=== PATIENT | female | born 1935 | race Caucasian/White ===

== ENCOUNTER 2016-02-23 14:31 | Emergency (ER) | payer OTHER ==
--- NOTE | 2016-02-23 15:05 | EDPHY ---
H & P Stated Complaint: vaginal d/c x several months, increased & changed color x 36 hrs Time Seen by Provider: 02/23/16 14:42 HPI/ROS: CHIEF COMPLAINT: Vaginal discharge, pain HISTORY OF PRESENT ILLNESS: The patient is a 80 y/o female arriving with her family member complaining of increasing frequency and volume of vaginal discharge following a vaginal biopsy on 01/25/[address] Camacho, almost 1 month ago. 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 She says the fluid was initially clear and she thought it may have been urine. The discharge is not a "mauve" color and may have fecal material in it. She reports she is changing pads frequently and the discharge is "flowing like a leaky faucet." She complains of increasing pain not alleviated by Advil. She had a PET scan last with Dr. Cintron, but does not know the results yet. REVIEW OF SYSTEMS: A 10 point review of systems was performed and is negative with the exception of the elements mentioned in the history of present illness. PHYSICAL EXAM: General Appearance: Alert, well hydrated, appropriate, and non-toxic appearing. Head: Atraumatic without scalp tenderness or obvious injury Eyes: Pupils equal, round, reactive to light and accommodation, EOMI, no trauma , no injection. Ears: Clear bilaterally, no perforation, normal landmarks Nose: Atraumatic, no rhinorrhea, clear. Throat: There is no erythema or exudates, no lesions, normal tonsils, mucus membranes moist. Neck: Supple, 2+ carotid upstroke, non-tender, no lymphadenopathy. Respiratory: No retractions, no distress, no wheezes, and no accessory muscle use. Lungs are clear to auscultation bilaterally. Cardiovascular: Regular rate and rhythm, no murmurs, rubs, or gallops. Bilateral carotid, radial, dorsalis pedis, and posterior tibial pulses intact. Good capillary refill all extremities. Gastrointestinal: Abdomen is soft, non-tender, non-distended, no masses, no rebound, no guarding, no peritoneal signs. : External inspection shows matted fluid, greyish malodorous discharge, full speculum exam not tolerated due to pain Musculoskeletal: Normal active ROM of all extremities, atraumatic. Neurological: Alert, appropriate, and interactive. The patient has normal DTRs and non-focal cranial nerves, motor, sensory, and cerebellar exam. Skin: No rashes, good turgor, no nodules on palpation. PAST MEDICAL HISTORY: Asthma, bladder cancer, hyperlipidemia, breast cancer - no radiation or chemotherapy, bladder cancer with surgical reconstruction. PAST SURGICAL HISTORY: Left nephrectomy, bladder reconstruction with urostomy, cystolitholapaxy, lumpectomy Pathology report 01/28/16: Anterior vaginal wall biopsy performed by Dr. Camacho showed invasive moderately differentiated squamous cell carcinoma SOCIAL HISTORY: Family member at bedside Dr. Doug Cintron DIFFERENTIAL DIAGNOSIS: The differential diagnosis for the patient's vaginal pain included but was not limited to malignant vaginal mass, post-biopsy infection, vaginal fistula, ovarian cyst, pelvic inflammatory disease, ovarian torsion, urinary tract infection, ectopic , cholecystitis, and appendicitis. MEDICAL DECISION MAKING: This is a 80 y/o female with a history of bladder cancer and breast cancer complaining of worsening vaginal discharge and pain following an anterior vaginal biopsy. She has no new system symptoms including fever. Plan for pelvic exam, cultures, and pain management. IV established. 50mcg IV Fentanyl administered prior to pelvic exam for pain. UA ordered. Vaginal swabs procured during pelvic exam and sent for culture. Patient had too much pain to tolerate full pelvic exam with speculum. There was malodorous lopez discharge on exam indicative of some kind of infection. 1gm IV Ceftriaxone and 500mg IV Flagyl administered. 1528: Consulted with Dr. Alva, oncology. CT report does not show rectal mass, only vaginal mass with diffuse vaginal uptake. Wet prep shows 3+ bacteria, which will be sent for culture. Waiting patient to produce urine sample. Patient will be discharged with script for Flagyl, Vicodin and recommendation to follow up with Dr. Camacho on Thursday. Return precautions given. She is comfortable with this plan. Source: Patient - Personal History Current Tetanus/Diphtheria Vaccine: Unsure Current Tetanus Diphtheria and Acellular Pertussis (TDAP): Unsure Tetanus Vaccine Date: <10 YRS - Medical/Surgical History Hx Asthma: Yes Hx Chronic Respiratory Disease: No Hx Diabetes: No Hx Cardiac Disease: No Hx Renal Disease: No Hx Cirrhosis: No Hx Alcoholism: No Hx HIV/AIDS: No Hx Splenectomy or Spleen Trauma: No Other PMH: bladder surgery, kidney surg, hysterectomy, lumpectomy. Patient with multiple urinary tract infections. history of bladder cancer - Social History Smoking Status: Never smoked Constitutional: Initial Vital Signs Temperature (C) 36.5 C 02/23/16 14:37 Heart Rate 103 H 02/23/16 14:37 Respiratory Rate 16 02/23/16 14:37 Blood Pressure 145/92 H 02/23/16 14:37 O2 Sat (%) 94 02/23/16 14:37 O2 Delivery Mode Room Air Allergies/Adverse Reactions: piperacillin Allergy (Severe, Verified 02/23/16 14:35) THROAT SWELLING SEASONAL Allergy (Intermediate, Uncoded 11/13/15 14:01) WATERY EYES, SNEEZY LACTOSE INTOLERANT Allergy (Uncoded 11/13/15 14:01) GI UPSET Home Medications: Medication Instructions Recorded Atorvastatin Calcium [Lipitor 10 5 mg PO DAILY 11/13/15 mg (*)] Thyroid [[place] Thyroid 60 MG (*)] 30 mg PO DAILY10 11/13/15 Hydrocodone/APAP 5/325 [[place] 1 - 2 each PO Q4-6PRN PRN #20 tab 02/23/16 5/325] Methenamine Deepa 02/23/16 metroNIDAZOLE [Flagyl 500 mg (*)] 500 mg PO BID #20 tab 02/23/16 traMADol 02/23/16 Medical Decision Making - Data Points Laboratory Results: 02/23/16 15:10 Trichomonas (Wet Prep) RARE EPITHELIAL CELL Marci species DNA Pending C.trachomatis RNA (TMA) Pending Gardnerella DNA Probe Pending N.gonorrhoeae RNA (TMA) Pending Trichomonas DNA Probe Pending Medications Given: Discontinued Medications Fentanyl (Sublimaze) 50 mcg IVP EDNOW ONE Stop: 02/23/16 16:07 Last Admin: 02/23/16 16:07 Dose: 50 mcg Ceftriaxone Sodium/Dextrose (Rocephin 1 Gm (Premix)) 50 mls @ 100 mls/hr IV EDNOW ONE PRN Reason: Protocol Stop: 02/23/16 16:07 Last Admin: 02/23/16 15:57 Dose: 50 mls Departure - Departure Disposition: Home, Routine, Self-Care Clinical Impression: Vaginal infection, Squamous cell carcinoma of vagina Condition: Fair Instructions: Vaginitis (ED), Metronidazole (By mouth), Hydrocodone/ Acetaminophen (By mouth) Additional Instructions: 1. Take Flagyl as prescribed. Be sure to finish the entire prescription. 2. Use Vicodin as prescribed for pain. Take constipation precautions by using Miralax as directed on the packaging. 3. Follow up with Dr. Camacho on Thursday. 4. Return to the ED for any worsening of condition. 5. Continue your methenamine as directed by Dr. Camacho. Referrals: Christen Cintron MD [Medical Doctor] - As per Instructions Teddy Camacho MD [Medical Doctor] - As per Instructions Prescriptions: metroNIDAZOLE [Flagyl 500 mg (*)] 500 mg PO BID #20 tab Hydrocodone/APAP 5/325 [[place] 5/325] 1 - 2 each PO Q4-6PRN PRN #20 tab PRN Reason: Pain, Moderate Report Scribed for: Gio Ford Report Scribed by: Tracy Gonzalez Date of Report: 02/23/16 Time of Report: 15:23
[2016-02-23] MEDS ORDERED: fentaNYL 100 MCG/2 ML INJ ONE (15:19)
[2016-02-23] MEDS ORDERED: fentaNYL 100 MCG/2 ML INJ IVP ONE (16:06)
[2016-02-23 17:19] VITALS: BP 164/96; PULSE 67; RESP 18; TEMP 98.4; O2SAT 93
[2016-02-25 15:03] LABS: CHLAMYDIA AMPLIFICATION GENPRB NEGATIVE (NEGATIVE)
== END 2016-02-23 17:30 | disposition home or self-care (01) ==
DX: N76.0 Acute vaginitis (principal); J45.909 Unspecified asthma, uncomplicated; C52 Malignant neoplasm of vagina; Z85.3 Personal history of malignant neoplasm of breast; Z85.51 Personal history of malignant neoplasm of bladder
CPT/HCPCS: 96374; 96375; 99284; J0696; J3010

== ENCOUNTER 2016-02-27 07:15 | Inpatient (IN) | payer OTHER ==
[2016-02-27] MEDS ORDERED: levOFLOXACIN 500 MG/DEXTROSE 100 ML IV ONE (08:00)
[2016-02-27 08:12] LABS: % IMMATURE GRANULYOCYTES 0.5 % (0.0-1.1); ABSOLUTE IMMATURE GRANULOCYTES 0.05 10^3/uL (0.00-0.10); ADD DIFF? NO; ADD MORPH? NO; ADD SCAN? NO; ATYPICAL LYMPHOCYTE FLAG 0 (0-99); FRAGMENT RBC FLAG 0 (0-99); HEMATOCRIT 37.6 % (38.0-47.0); HEMOGLOBIN 12.6 g/dL (12.6-16.3); LEFT SHIFT FLG 0 (0-99); LIPEMIA HEMOLYSIS FLAG 80 (0-99); MEAN CELL HEMOGLOBIN 30.1 pg (27.9-34.1); MEAN CELL HEMOGLOBIN CONCENTR. 33.5 g/dL (32.4-36.7); MEAN CELL VOLUME 89.7 fL (81.5-99.8); PLATELET CLUMPS FLAG 10 (0-99); PLATELET COUNT 345 10^3/uL (150-400); RED BLOOD CELL COUNT 4.19 10^6/uL (4.18-5.33); RED CELL DISTRIBUTION WIDTH 13.3 % (11.5-15.2)
[2016-02-27 08:22] LABS: APTT 24.5 SEC (23.0-38.0); INR 0.99 (0.83-1.16)
[2016-02-27 08:23] LABS: CREATININE 1.3 mg/dL (0.6-1.0)
[2016-02-27] MEDS ORDERED: MIDAZOLAM 2 MG/2 ML VIAL ONE ×2 (08:35→08:36)
[2016-02-27] MEDS ORDERED: PROMETHAZINE HCL 25 MG/ML VIAL ONE (08:35)
[2016-02-27] MEDS ORDERED: fentaNYL 100 MCG/2 ML INJ ONE ×2 (08:36→12:53)
[2016-02-27] MEDS ORDERED: NS 1,000 ML IV SCH (08:45)
[2016-02-27] MEDS ORDERED: IOPAMIDOL (ISOVUE-300) 100 ML BTL IV ONE (09:55)
[2016-02-27] MEDS ORDERED: HYDROCODONE/APAP 5/325 TAB ONE (11:25)
[2016-02-27] MEDS ORDERED: HYDROCODONE/APAP 5/325 TAB PO ONE (11:30)
[2016-02-27] MEDS ORDERED: ONDANSETRON 4 MG/2 ML VIAL ONE (12:01)
[2016-02-27] MEDS ORDERED: fentaNYL 100 MCG/2 ML INJ IVP PRN (13:29)
[2016-02-27] MEDS ORDERED: oxyCODONE IR 5 MG TAB PO PRN (13:29)
[2016-02-27] MEDS ORDERED: ONDANSETRON 4 MG/2 ML VIAL IVP PRN (13:39)
[2016-02-27] MEDS ORDERED: ONDANSETRON DISINTEGRATING 4 MG TAB PO PRN (13:39)
[2016-02-27] MEDS ORDERED: PROMETHAZINE HCL 25 MG/ML VIAL IVP PRN (15:29)
--- NOTE | 2016-02-27 15:57 | GHP ---
[f rep st] HISTORY AND PHYSICAL DATE OF ADMISSION: 02/27/2016 CHIEF COMPLAINT: Flank pain, and nausea and vomiting. HPI: This is a 80-year-old female with history of bladder cancer, status post left nephrectomy with bladder reconstruction and urostomy, who underwent right-sided nephrostomy tube placement today since she has been having vaginal leakage of urine over the past few months, which has been worsening, tho ught to be secondary to tumor eroding her urinary tract. Postprocedure today, she had intense 20/10 pain in her right flank and lower abdomen. This was assoc iated with nausea and vomiting. In the PACU, she has been given Zofran and fentanyl with some improv ement of her nausea, but she continues to have severe flank pain. Prior to this procedure today, she denies having any fevers or chills. She has been in her usual sta te of health. PAST MEDICAL HISTORY: 1. Bladder cancer, status post left nephrectomy and bladder reconstruction with urostomy. 2. Dyslipidemia. 3. History of breast cancer, status post lobectomy. 4. Hysterectomy. 5. Cystolitholapaxy. HOME MEDICATIONS: Flagyl, tramadol, [place] Thyroid, [place], Lipitor. ALLERGIES: Reviewed. Zosyn has caused severe throat swelling. SOCIAL HISTORY: The patient lives independently. She denies any current tobacco use. She does have a 25-year pack smoking history. She drinks wine occasionally. FAMILY HISTORY: Reviewed and noncontributory. REVIEW OF SYSTEMS: Comprehensive 10-point review of systems was done and is negative, except for wha t was mentioned in the HPI. PHYSICAL EXAM: VITAL SIGNS: Blood pressure 164/96, pulse 67, respiratory rate 18, O2 sat 93% on afshan m air. GENERAL: No acute distress. HEAD: Normocephalic, atraumatic. EYES: PERRLA. Sclerae anic teric. MOUTH: Moist mucous membranes. NECK: Supple. No lymphadenopathy. CARDIOVASCULAR: S1,S2. No murmurs, rubs, clicks, gallops, or JVD. No lower extremity edema. PULMONARY: Lungs are clear. No wheezes, rales, or rhonchi. ABDOMEN: Soft, nontender, nondistended. No guarding or rebound te nderness. Normoactive bowel sounds. EXTREMITIES: No clubbing or cyanosis. NEURO: Cranial nerves 2-12 grossly intact. No focal motor or sensory deficits. SKIN: Clear. No rashes. DIAGNOSTICS: WBC is 10.12, hemoglobin 12.6, hematocrit 37.6, platelets 345. Coags unremarkable. Cr eatinine was 1.3. Op report from today is not yet available. ASSESSMENT AND PLAN: This is a 80-year-old female with a history of bladder cancer, status post left nephrectomy and bladder reconstruction and urostomy, whom I have been asked to admit to the hospital after undergoing a right nephrostomy due to severe pain, and nausea and vomiting postoperatively. PLAN: 1. The patient will be placed on observation, where we will treat her symptoms supportively with IV antiemetics and opioid pain medications. She will also be started on IV fluids. Will repeat a metab olic panel in the morning. The patient may benefit from consultation with Oncology tomorrow morning if it seems like she is going to be in the hospital for more than 24 hours. Otherwise, she has plans to follow up with Dr. Cintron on an outpatient basis. 2. Elevated blood pressure without history of hypertension, most likely acute stress response. 3. Plan: Monitor blood pressure and treat as indicated. /[id number]/MODL
[2016-02-27] MEDS: HYDROmorphONE/DILAUDID 2 MG/ML SYR IVP PRN (17:25)
--- NOTE | 2016-02-27 18:06 | IR ---
Right Percutaneous Nephrostomy Tube Placement Nephroureteral Stent Placement Indication: Bladder cancer. Status post cystectomy, with a pouch and reimplantation of ureter. 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 The patient is going through multiple pads a day. Urinary diversion was requested. Informed Consent: Obtained from the patient. Risks and benefits were discussed. Crosscutting Measure: Patient's current list of medications including all known prescriptions, over- the-counters, herbals, and vitamin/mineral/dietary supplements are reviewed. Medications' name, dosa ge, frequency, and route of administration are confirmed. Patient is a non-smoker. Prophylactic Antibiotic: Levaquin, 750 mg, was ordered and administered for antimicrobial prophylaxi s. Discontinuation of Prophylactic Antibiotic: Prophylactic antibiotic was given within 4 hours prior t o incision. There was an order to discontinue the antibiotic within 24 hours of procedure end time. VTE Prophylaxis: VTE prophylaxis is not medically necessary for this procedure. Technique: Patient is placed in prone position. A "timeout" procedure was performed to identify the correct patient and the correct procedure. 1% Xylocaine was used for local anesthetic. All element s of maximal sterile barrier technique, including cap, mask, sterile gown, sterile gloves, large ster ile sheet, hand hygiene, and 2% chlorhexidine for cutaneous antisepsis, followed. When ultrasound is used, sterile gel and probe covers are used. Ultrasound evaluation of potential access site was performed. A permanent recording was created for the patient's record. When ultrasound is used, sterile gel and probe covers are used. Accustick 22-gauge needle is inserted under ultrasound guidance into the lower pole dilated collectin g system. Contrast injection confirms placement of the needle in the collecting system. 0.035 wire is advanced coaxially along [place] wire, which was then placed as a safety wire. [place] cath eter is advanced down distally into the pouch. Ureterogram is performed. A total of about 200 mL of contrast were injected, not identifying a leak or a fistula. A 22-cm nephroureteral stent was then advanced, distally pigtailed in the pouch, proximally in the re nal pelvis. After aspiration of that catheter, removing most of the injected contrast, it was then t hat a distal leak was identified. There is also extravasation of contrast surrounding the proximal c ollecting system during the placement of the nephroureteral stent. The leak heads towards the vagina l cuff. If this is truly the fistula, the mouth of the fistula is fairly wide. It would estimate ab out 9 mm in diameter. The drain is attached to a gravity bag. During recovery, the patient experienced significant flank pain that was partially alleviated by oral narcotic pain medication. Medication: 12.5 mg Phenergan, 2.5 mg Versed, 125 mcg fentanyl, 0910 to 0940. Fluoroscopy: 3.2 minutes, 18 images. Impressions 1. Significantly dilated right intrarenal collecting system. 2. Widely patent ureter-pouch anastomosis. 3. Placement of 22-cm nephroureteral stent. 4. Some extravasation of contrast around the collecting system during placement of the stent. 5. Fistula identified that is about 9 mm in diameter, between the distal end of the pouch inferiorly and the right lateral vaginal wall. 6. Significant flank discomfort during recovery. Plan 1. External drainage. 2. Overnight in-house stay under observation status for pain control. The above are discussed in detail with the patient and her daughter, both expressed understanding of the plan.
[2016-02-27] MEDS: SULFAMETHOX/TMP 800/160 MG 1 TAB PO SCH (20:15)
[2016-02-27] MEDS ORDERED: metroNIDAZOLE 500 MG TAB PO SCH (22:00)
[2016-02-27] MEDS: HYDROCODONE/APAP 5/325 TAB PO PRN (22:08)
[2016-02-27] MEDS: D5W 1/2 NS W/ 20 KCl/L 1,000 ML IV SCH (23:01)
[2016-02-28 06:08] LABS: % IMMATURE GRANULYOCYTES 0.3 % (0.0-1.1); ABSOLUTE IMMATURE GRANULOCYTES 0.03 10^3/uL (0.00-0.10); ADD DIFF? NO; ADD MORPH? NO; ADD SCAN? NO; ATYPICAL LYMPHOCYTE FLAG 0 (0-99); FRAGMENT RBC FLAG 0 (0-99); HEMATOCRIT 34.3 % (38.0-47.0); HEMOGLOBIN 11.3 g/dL (12.6-16.3); LEFT SHIFT FLG 0 (0-99); LIPEMIA HEMOLYSIS FLAG 80 (0-99); MEAN CELL HEMOGLOBIN 30.2 pg (27.9-34.1); MEAN CELL HEMOGLOBIN CONCENTR. 32.9 g/dL (32.4-36.7); MEAN CELL VOLUME 91.7 fL (81.5-99.8); PLATELET CLUMPS FLAG 10 (0-99); PLATELET COUNT 281 10^3/uL (150-400); RED BLOOD CELL COUNT 3.74 10^6/uL (4.18-5.33); RED CELL DISTRIBUTION WIDTH 13.5 % (11.5-15.2)
[2016-02-28 06:38] LABS: ANION GAP 8 mEq/L (8-16); CARBON DIOXIDE 20 mEq/l (22-31); CHLORIDE 111 mEq/L (97-110); CREATININE 1.2 mg/dL (0.6-1.0); GLOMERULAR FILTRATION RATE 43; GLUCOSE 113 mg/dL (70-100); POTASSIUM 4.1 mEq/L (3.5-5.2); SODIUM 139 mEq/L (134-144)
[2016-02-28] MEDS: D5W 1/2 NS W/ 20 KCl/L 1,000 ML IV SCH (08:46)
[2016-02-28] MEDS: SULFAMETHOX/TMP 800/160 MG 1 TAB PO SCH (08:59)
[2016-02-28] MEDS ORDERED: IBUPROFEN 200 MG TAB PO PRN (09:48)
[2016-02-28] MEDS ORDERED: traMADol 50 MG TAB PO PRN (09:48)
--- NOTE | 2016-02-28 11:42 | PDDCSUM ---
Discharge Summary Discharge Summary: DISCHARGE SUMMARY FOLLOW-UP ITEMS: Aspirate results pending at time of discharge DATE OF ADMISSION: 02/27/2016 DATE OF DISCHARGE: 02/28/2016 DISCHARGE DIAGNOSES: 1. Acute abdominal pain 2. Vaginal-pouch fistula 3. Bladder cancer 4. Acute kidney injury CONSULTATIONS: Interventional Radiology PROCEDURES / IMAGING: Nephro ureteral stent placement CHIEF COMPLAINT: Acute abdominal pain, elective procedure SUBJECTIVE: Patient has no abdominal pain at time of discharge PHYSICAL EXAM ON DISCHARGE: Heart rate is 80, systolic blood pressure 1/35, satting well on room air, afebrile overnight, patient has some flank tenderness around the tube site without any erythema, induration, fluctuance, bowel sounds are present, good air movement in the right lung base with some inspiratory crackles LABS ON DISCHARGE: Creatinine 1.2, potassium 4.1, white blood cell count 8900, hemoglobin 11.3 HOSPITAL COURSE BY PROBLEM: 1. Acute abdominal pain. The patient was placed under observation following an interventional radiology procedure given ongoing, intractable abdominal pain related to the procedure. The patient's pain was well managed with initial use of IV pain medications and she was transitioned to oral pain medications. The patient is currently responding well to oral pain medications and she will be discharged home with as needed [place] as well as a bowel regimen to prevent constipation. The patient was evaluated by physical and occupational therapy to determine whether she requires any home care assistance. 2. Vaginal-pouch fistula. On patient's nephroureteral stent placement, fluoroscopy it did demonstrate a fistula which is resulting in some urinary leakage. Hopefully the placement of this stent will reduce the amount of urinary leakage, and the patient will follow up with either Dr. Camacho or Dr. Cintron for this issue. 3. Bladder cancer. The patient has follow-up appointment to be scheduled with Dr. Cintron to review her recent PET scan results. 4. Acute kidney injury. Evidence by rising serum creatinine level, potentially secondary to urinary tract obstruction, creatinine level down trending at time of discharge after receiving IV fluids as well as stent/tube placement. DISCHARGE MEDICATIONS: Please see official discharge medication reconciliation sheet in chart , as- needed [place], Senokot S while on pain medications DISCHARGE INSTRUCTIONS: Please follow up with Dr. Schultz in 6 weeks and adhere to the interventional radiology devices recommendations, please schedule follow-up with Dr. Cintron in the short term.
[2016-02-28] MEDS: ATORVASTATIN CALCIUM 10 MG TAB PO SCH (16:21)
[2016-02-28] MEDS: THYROID 60 MG TAB PO SCH (16:24)
[2016-02-28] MEDS: metroNIDAZOLE 500 MG TAB PO SCH ×2 (16:26→21:44)
[2016-02-28] MEDS: METHENAMINE HIPP 1 GM TAB PO SCH ×3 (16:33→21:43)
[2016-02-29] MEDS: HYDROmorphONE/DILAUDID 2 MG/ML SYR IVP PRN ×2 (03:47→04:01)
[2016-02-29] MEDS: HYDROCODONE/APAP 5/325 TAB PO PRN (03:51)
[2016-02-29 05:37] LABS: % IMMATURE GRANULYOCYTES 0.3 % (0.0-1.1); ABSOLUTE IMMATURE GRANULOCYTES 0.03 10^3/uL (0.00-0.10); ADD DIFF? NO; ADD MORPH? NO; ADD SCAN? NO; ATYPICAL LYMPHOCYTE FLAG 0 (0-99); FRAGMENT RBC FLAG 0 (0-99); HEMATOCRIT 35.2 % (38.0-47.0); HEMOGLOBIN 11.3 g/dL (12.6-16.3); LEFT SHIFT FLG 0 (0-99); LIPEMIA HEMOLYSIS FLAG 80 (0-99); MEAN CELL HEMOGLOBIN 29.6 pg (27.9-34.1); MEAN CELL HEMOGLOBIN CONCENTR. 32.1 g/dL (32.4-36.7); MEAN CELL VOLUME 92.1 fL (81.5-99.8); MEAN PLATELET VOLUME 9.8 fL (8.7-11.7); PLATELET CLUMPS FLAG 0 (0-99); PLATELET COUNT 281 10^3/uL (150-400); RED BLOOD CELL COUNT 3.82 10^6/uL (4.18-5.33); RED CELL DISTRIBUTION WIDTH 13.3 % (11.5-15.2)
[2016-02-29 05:55] LABS: ANION GAP 6 mEq/L (8-16); CALCIUM 10.3 mg/dL (8.5-10.4); CARBON DIOXIDE 23 mEq/l (22-31); CHLORIDE 107 mEq/L (97-110); GLOMERULAR FILTRATION RATE 54; GLUCOSE 101 mg/dL (70-100); POTASSIUM 4.3 mEq/L (3.5-5.2); SODIUM 136 mEq/L (134-144)
[2016-02-29 08:21] VITALS: BP 122/75; PULSE 84; RESP 18; TEMP 97.5; O2SAT 90
[2016-02-29] MEDS: METHENAMINE HIPP 1 GM TAB PO SCH (09:04)
[2016-02-29] MEDS: ATORVASTATIN CALCIUM 10 MG TAB PO SCH (09:05)
[2016-02-29] MEDS: metroNIDAZOLE 500 MG TAB PO SCH (09:05)
[2016-02-29] MEDS: THYROID 60 MG TAB PO SCH (09:10)
--- NOTE | 2016-02-29 12:33 | PDIAF ---
- Diagnosis Diagnosis: Pouch-Vaginal Fistula, Nephrostomy tube placement, Intractible pain Code Status: Do Not Resuscitate - Medication Management Discharge Medications: Medications to Continue on Transfer Atorvastatin Calcium [Lipitor 10 mg (*)] 5 mg PO DAILY 11/13/15 [Last Taken 12/02] Thyroid [[place] Thyroid 60 MG (*)] 30 mg PO DAILY10 11/13/15 [Last Taken ] Methenamine Deepa [Hiprex 1 gm (*)] 0.5 gm PO BID 02/23/16 [Last Taken 02/26/16] traMADol [Ultram 50 mg (*)] 50 mg PO Q4-6PRN PRN 02/23/16 [Last Taken Unknown] Ibuprofen [Advil] 400 mg PO Q4-6PRN PRN 02/27/16 [Last Taken 02/26/16] metroNIDAZOLE [Flagyl 500 mg (*)] 250 mg PO BID 02/27/16 [Last Taken 02/26/16] Hydrocodone/APAP 5/325 [[place] 5/325 (*)] 1 - 2 each PO Q4-6PRN PRN #40 tab 02/28 [Last Taken Unknown] Sennosides/Docusate Sodium [Senokot-S] 1 each PO BID PRN #60 tab 02/29/16 [Last Taken Unknown] Resume Writer Antibiotics: NA Discharge Medications: Refer to the Discharge Home Medication list for PRN reason. PICC Care - Routine: N/A - Orders Services needed: Home Care, Registered Nurse Home Care Face to Face: I certify that this patient was under my care and that I had the required [id number] encounter meeting the encounter requirements on the discharge day. My findings support the fact that the patient is homebound as defined in CMS Chapter 7 Medicare Benefits Manual 30.1.1, The condition of the patient is such that there exists a normal inability to leave home and consequently, leaving home would require a considerable and taxing effort. Diet Recommendation: no restrictions on diet [place]: Not applicable (perform regular nephrostomy drain management as recommended) Wound Care Instructions: keep clean and dry - Follow Up Care Current Providers and Referrals: Christen Cintron MD [Medical Doctor] - Teddy Camacho MD [Primary Care Provider] - Elda Hickman MD [Medical Doctor] -
--- NOTE | 2016-02-29 12:38 | PDDCSUM ---
Discharge Summary Discharge Summary: DISCHARGE SUMMARY FOLLOW-UP ITEMS: Aspirate results pending at time of discharge DATE OF ADMISSION: 02/27/2016 DATE OF DISCHARGE: 02/29/2016 DISCHARGE DIAGNOSES: 1. Acute abdominal pain 2. Vaginal-pouch fistula 3. Bladder cancer 4. Acute kidney injury CONSULTATIONS: Interventional Radiology PROCEDURES / IMAGING: Nephroureteral stent placement CHIEF COMPLAINT: Acute abdominal pain, elective procedure SUBJECTIVE: Patient has no abdominal pain at time of discharge PHYSICAL EXAM ON DISCHARGE: Heart rate is 80, systolic blood pressure 1/35, satting well on room air, afebrile overnight, patient has some flank tenderness around the tube site without any erythema, induration, fluctuance, bowel sounds are present, good air movement in the right lung base with some inspiratory crackles LABS ON DISCHARGE: Creatinine 1.0, potassium 4.4, white blood cell count 9000, hemoglobin 11.3 HOSPITAL COURSE BY PROBLEM: 1. Acute abdominal pain. The patient was placed under observation following an interventional radiology procedure given ongoing, intractable abdominal pain related to the procedure. The patient's pain was well managed with initial use of IV pain medications and she was transitioned to oral pain medications. The patient is currently responding well to oral pain medications and she will be discharged home with as needed [place] as well as a bowel regimen to prevent constipation. The patient initially experienced significant pain and deconditioning which rendered her unable to safely ambulate, unable to safely complete ADLs, and she warranted upgrade to inpatient admission status for ongoing care, as it was unsafe to discharge her. After further work w/ physical therapy on 02/28, the patient's pain and deconditioning significantly improved, and she was deemed safe for discharge home by PT. 2. Vaginal-pouch fistula. On patient's nephroureteral stent placement, fluoroscopy it did demonstrate a fistula which is resulting in some urinary leakage. Hopefully the placement of this stent will reduce the amount of urinary leakage, and the patient will follow up with either Dr. Camacho or Dr. Hickman for this issue. The patient and daughter were seen by Dr. Story prior to discharge to discuss the length and comfort of the tube. 3. Bladder cancer. The patient has follow-up appointment to be scheduled with Dr. Cintron to review her recent PET scan results. 4. Acute kidney injury. Evidence by rising serum creatinine level, potentially secondary to urinary tract obstruction, creatinine level down trending at time of discharge after receiving IV fluids as well as stent/tube placement. DISCHARGE MEDICATIONS: Please see official discharge medication reconciliation sheet in chart , as- needed [place] while on pain medications DISCHARGE INSTRUCTIONS: Please follow up with Dr. Hickman in 6 weeks and adhere to the interventional radiology devices recommendations, please schedule follow-up with Dr. Cintron in the short term. Greater than 30 minutes spent on direct patient care, as well as discharge planning and preparation.
[2016-02-29] MEDS ORDERED: POLYETHYLENE GLYCOL 3350 17 GM PKT PO ONE (15:01)
== END 2016-02-29 17:23 | disposition home health service (06) | DRG 940 ==
LOC: FIMAGING 07:15 → F1N 13:38 → OBSVTOIN 02-28 16:50
PROVIDERS: ADMIT Radiology Diagnostic Radiology; ATTEND Internal Medicine
PROC: 0T733DZ Dilation of Right Kidney Pelvis with Intraluminal Device, Percutaneous Approach (ICD-10-PCS; principal; 2016-02-27 10:00)
DX: G89.18 Other acute postprocedural pain (principal); N17.9 Acute kidney failure, unspecified; N82.8 Other female genital tract fistulae; C52 Malignant neoplasm of vagina; E78.5 Hyperlipidemia, unspecified; Z85.51 Personal history of malignant neoplasm of bladder; Z90.5 Acquired absence of kidney; Z85.3 Personal history of malignant neoplasm of breast
CPT/HCPCS: 97116-GP; 97162-GP; 97165-GO; 97530-GP; 97535-GO; C1729; C1758; C1769; G8978-GP-CL; G8979-GP-CI; G8980-GP-CI; G8987-GO-CI; G8988-GO-CI; J1170; J1644; J1956; J2250; J2405; J2550; J3010; Q9967

== ENCOUNTER → 2016-03-07 | Outpatient (CLI) | payer OTHER ==
[~2016-03-07] MED LIST: GADOBUTROL 10 ML VIAL IVP ONE
--- NOTE | 2016-03-07 15:58 | MR ---
MRI of the Pelvis, Without and With Contrast HISTORY: Patient has a history of prior bladder cancer, with cystectomy and urinary diversion. 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 Staging is requested prior to definitive therapy. TECHNIQUE: Prior to contrast administration, axial, sagittal, and coronal MR sequences of the pelvis are obtained. After intravenous administration of 6 mL Gadavist, postcontrast enhanced imaging obtain ed in three planes. FINDINGS: Deep within the central pelvis, there is a solid contrast-enhancing mass centered at the le kimberly of the upper vagina and cervix. This mass measures 5 x 5 x 5 cm in size and demonstrates peripher al spiculation and irregularity. There is no evidence of extension laterally to the obturator internu s muscles bilaterally. The tumor extends posteriorly to abut the ventral serosal surface of the colon at the rectosigmoid junction, without evidence of abnormal enhancement of the colon to suggest kiki guous invasion. Superiorly, the tumor directly extends into the base of the patient's neobladder, thi s finding best visualized on coronal image 14 of series 11, where there is tumor extension on both th e medial and lateral margins of the neobladder. There is contiguous fistula formation and urine passi ng through the central aspect of the tumor to the vagina. There are moderately prominent inguinal lymph nodes bilaterally, nonspecific in features, right great er than left. The largest right inguinal lymph node is identified on image 24 series 10, measuring 1. 6 cm in size. No enlarged pelvic lymph nodes identified. No peritoneal free fluid. An ostomy is prese nt in the right lower quadrant. IMPRESSION: 1. 5-cm mass centered in the low pelvis at the level of the upper vagina and cervix, with evidence of contiguous extension superiorly into the patient's neobladder, with secondary vesicovaginal fistula. While the tumor extends posteriorly to abut the ventral serosal surface of the colon, no features of direct contiguous extension identified. Microscopic serosal involvement is not excluded, however. 2. Mildly prominent bilateral inguinal lymph nodes, right greater than left, nonspecific in features.
== END ==
LOC: FIMAGING 09:24
PROVIDERS: ATTEND Radiology Radiation Oncology
DX: N89.8 Other specified noninflammatory disorders of vagina (principal); N82.0 Vesicovaginal fistula; C52 Malignant neoplasm of vagina; Z85.51 Personal history of malignant neoplasm of bladder
CPT/HCPCS: 72197; A9585

== ENCOUNTER 2016-04-04 12:14 | Day surgery (SDC) | payer OTHER ==
[2016-04-04] MEDS ORDERED: fentaNYL 100 MCG/2 ML INJ ONE (12:43)
[2016-04-04] MEDS ORDERED: MIDAZOLAM 2 MG/2 ML VIAL ONE (12:43)
[2016-04-04] MEDS ORDERED: IOPAMIDOL (ISOVUE-300) 100 ML BTL IV ONE (14:28)
== END 2016-04-04 15:35 | disposition home or self-care (01) ==
LOC: FIMAGING 12:14
PROVIDERS: ATTEND Radiology Diagnostic Radiology
PROC: 0TP Urinary System, Removal (ICD-10-PCS; 2016-04-04)
PROC: 0T9B30Z Drainage of Bladder with Drainage Device, Percutaneous Approach (ICD-10-PCS; principal; 2016-04-04 14:52)
DX: Z43.6 Encounter for attention to other artificial openings of urinary tract (principal); N82.0 Vesicovaginal fistula
CPT/HCPCS: 50387; 75984; 99152; C1729; C1769; J1644; J2250; J3010; Q9967

== ENCOUNTER 2016-04-06 11:15 | Inpatient (IN) | payer OTHER ==
[2016-04-06] MEDS ORDERED: ONDANSETRON 4 MG/2 ML VIAL IVP ONE (11:42)
[2016-04-06] MEDS ORDERED: HYDROmorphONE/DILAUDID 1 MG/ML SYR IVP ONE (11:42)
[2016-04-06] MEDS ORDERED: NS 500 ML IV ONE (11:42)
--- NOTE | 2016-04-06 11:58 | EDPHY ---
H & P Time Seen by Provider: 04/06/16 11:53 HPI/ROS: Chief complaint. Nausea, vaginal pain HPI. Patient is a 80-year-old female with nausea but no vomiting or diarrhea. Temperature this morning 100.6 degrees. She is unable to take her medications. Patient had bilateral nephrostomy tubes changed April 04 this is a routine change. Since then her symptoms have developed. The nephrostomy tubes apparently enter into the vaginal area and she has discomfort area. No pain. She has been taking in cephalexin for the past week for urinary tract infection suppression ROS Constitutional. no fever/chills, no weakness Eyes. no problems with vision ENT. no sore throat, no nasal drainage Cardiovascular. no chest pain Respiratory. no shortness of breath, no coughFever and weakness Abdominal. Nausea and low abdominal pain . no problems urinating MS. no calf pain/swelling, no neck/back pain, no joint pain Skin. no rash Lymph. no swollen glands Neuro. no headache, no dizziness, no difficulty walking or with speech Past Medical/Surgical History: Past medical history is significant for bladder surgery, kidney surgery, hysterectomy, bladder cancer, nephrostomy tubes, dyslipidemia, breast cancer with lobectomy, hypothyroid Social History: Single, nonsmoker, no alcohol Smoking Status: Former smoker Physical Exam: General Appearance: Alert well-developed female vital signs show heart rate 118 afebrile Eyes: Pupils equal and round no pallor or injection. ENT, Mouth: Mucous membranes are moist. Respiratory: There are no retractions, lungs are clear to auscultation. Cardiovascular: Regular rate and rhythm. Gastrointestinal: Abdomen is soft with mild low abdominal tenderness. No masses or organomegaly Neurological: Awake and alert, sensory and motor exams grossly normal. Skin: Warm and dry, no rashes. Musculoskeletal: Neck is supple nontender. Extremities symmetrical, full range of motion. Psychiatric: Patient is oriented X 3, there is no agitation. Constitutional: Initial Vital Signs Temperature (C) 36.9 C 04/06/16 11:18 Heart Rate 118 H 04/06/16 11:18 Respiratory Rate 16 04/06/16 11:18 Blood Pressure 138/86 H 04/06/16 11:18 O2 Sat (%) 94 04/06/16 11:18 O2 Delivery Mode Room Air Allergies/Adverse Reactions: piperacillin Allergy (Severe, Verified 04/06/16 11:22) THROAT SWELLING SEASONAL Allergy (Intermediate, Uncoded 04/06/16 11:22) WATERY EYES, SNEEZY LACTOSE INTOLERANT Allergy (Uncoded 04/06/16 11:22) GI UPSET Home Medications: Medication Instructions Recorded Atorvastatin Calcium [Lipitor 10 5 mg PO HS 11/13/15 mg (*)] Thyroid [Gregory Thyroid 60 MG (*)] 30 mg PO DAILY AT 6AM 11/13/15 Ascorbic Acid [Vitamin C 500 mg 500 mg PO DAILY 04/03/16 (*)] CISplatin [PlatINOL] 0 mg IV WE 04/06/16 Cephalexin [Keflex (*)] 500 mg PO QID 04/06/16 Dexamethasone [Decadron 4 MG (*)] 2 mg PO DAILY 04/06/16 Lidocaine [Lidocaine 4% cream] 1 flavia TP PRN PRN 04/06/16 Methenamine Deepa [Hiprex 1 gm (*)] 0.5 gm PO BIDMEAL 04/06/16 Polyethylene Glycol 3350 [Miralax 17 gm PO DAILY PRN 04/06/16 17 gm (*)] Prochlorperazine Maleate 10 mg PO Q6HRS PRN 04/06/16 [Compazine 10mg (*)] Sennosides/Docusate Sodium 1 each PO DAILY PRN 04/06/16 [Senokot-S (OTC)] Simethicone [Gas-X] 125 mg PO DAILY PRN 04/06/16 oxyCODONE CR [Oxycontin] 10 mg PO BID 04/06/16 oxyCODONE IR [Oxycodone Ir (*)] 5 mg PO Q4HRS PRN 04/06/16 Medical Decision Making Procedures: IV normal saline. She is given Dilaudid and Zofran to help replace some of the medication she has not been able to take this morning. ED Course/Re-evaluation: Do a posada patient more comfortable and stable. The patient has a urinary tract infection despite being on Keflex. This is probably related to her recent instrumentation of and replacement of her nephrostomy tubes. The patient and I did discussed the concern for developing urinary tract infection after urologic surgery and being on cephalexin. It is unclear what the bacteria will be and the specific antibiotic that the bug is sensitive to. We discussed best care is admission and IV antibiotics and further evaluation. She expresses understanding and agreement I consulted and discussed the case with Dr. Oneal, hospitalist, who agrees to the admission Differential Diagnosis: I considered urosepsis. The patient has root recent nephrostomy tube changed instrumentation. The concern is for urosepsis and unusual bacteria. It is even more concerning as she is on antibiotic therapy currently for suppression of urinary tract infection. At this point there is no evidence of sepsis. The patient is also receiving chemotherapy and radiation so her immune system is suppressed - Data Points Laboratory Results: Laboratory Results 04/06/16 12:05 04/06/16 12:05 04/06/16 04/06/16 04/06/16 12:05 12:05 12:05 WBC 4.91 10^3/uL 10^3/uL (3.80-9.50) RBC 3.77 10^6/uL L 10^6/uL (4.18-5.33) Hgb 10.9 g/dL L g/dL (12.6-16.3) Hct 32.4 % L % (38.0-47.0) MCV 85.9 fL fL (81.5-99.8) MCH 28.9 pg pg (27.9-34.1) MCHC 33.6 g/dL g/dL (32.4-36.7) RDW 13.4 % % (11.5-15.2) Plt Count 94 10^3/uL L 10^3/uL (150-400) MPV 9.7 fL fL (8.7-11.7) Neut % (Auto) 88.4 % H % (39.3-74.2) Lymph % (Auto) 4.9 % L % (15.0-45.0) [place] % (Auto) 5.1 % % (4.5-13.0) Eos % (Auto) 0.4 % L % (0.6-7.6) Baso % (Auto) 0.4 % % (0.3-1.7) Nucleat RBC Rel Count 0.0 % % (0.0-0.2) Absolute Neuts (auto) 4.34 10^3/uL 10^3/uL (1.70-6.50) Absolute Lymphs (auto) 0.24 10^3/uL L 10^3/uL (1.00-3.00) Absolute Monos (auto) 0.25 10^3/uL L 10^3/uL (0.30-0.80) Absolute Eos (auto) 0.02 10^3/uL L 10^3/uL (0.03-0.40) Absolute Basos (auto) 0.02 10^3/uL 10^3/uL (0.02-0.10) Absolute Nucleated RBC 0.00 10^3/uL 10^3/uL (0-0.01) Immature Gran % 0.8 % % (0.0-1.1) Immature Gran # 0.04 10^3/uL 10^3/uL (0.00-0.10) Sodium 131 mEq/L L mEq/L (134-144) Potassium 4.0 mEq/L mEq/L (3.5-5.2) Chloride 96 mEq/L L mEq/L (97-110) Carbon Dioxide 24 mEq/l mEq/l (22-31) Anion Gap 11 mEq/L mEq/L (8-16) BUN 17 mg/dL mg/dL (7-23) Creatinine 0.9 mg/dL mg/dL (0.6-1.0) Estimated GFR > 60 Glucose 109 mg/dL H mg/dL (70-100) Calcium 9.1 mg/dL mg/dL (8.5-10.4) Lipase 21.0 IU/L L IU/L (23-300) Urine Color YELLOW Urine Appearance HAZY Urine pH 8.0 H (5.0-7.5) Ur Specific [place] 1.010 (1.002-1.030) Urine Protein 2+ H (NEGATIVE) Urine Ketones NEGATIVE (NEGATIVE) Urine Blood 1+ H (NEGATIVE) Urine Nitrate POSITIVE H (NEGATIVE) Urine Bilirubin NEGATIVE (NEGATIVE) Urine Urobilinogen NEGATIVE EU EU (0.2-1.0) Ur Leukocyte Esterase 3+ H (NEGATIVE) Urine RBC 50-182 /hpf H /hpf (0-3) Urine WBC 50-182 /hpf H /hpf (0-3) Ur Epithelial Cells NONE SEEN /lpf /lpf (NONE-1+) Urine Bacteria 2+ /hpf H /hpf (NONE SEEN) Ur Culture Indicated? INDICATED H (NI) Urine Glucose NEGATIVE (NEGATIVE) Medications Given: Discontinued Medications Hydromorphone HCl (Dilaudid) 0.5 mg IVP EDNOW ONE Stop: 04/06/16 11:43 Last Admin: 04/06/16 12:10 Dose: 0.5 mg Sodium Chloride (Ns) 500 mls @ 0 mls/hr IV EDNOW ONE PRN Reason: Wide Open Stop: 04/06/16 11:43 Last Admin: 04/06/16 12:17 Dose: 500 mls Sodium Chloride (Ns) 1,000 mls @ 0 mls/hr IV ONCE ONE PRN Reason: Wide Open Stop: 04/06/16 12:14 Last Admin: 04/06/16 12:17 Dose: 1,000 mls Levofloxacin/Dextrose (Levaquin 750 Mg (Premix)) 150 mls @ 100 mls/hr IV EDNOW ONE PRN Reason: Protocol Stop: 04/06/16 14:34 Last Admin: 04/06/16 14:00 Dose: 150 mls Ondansetron HCl (Zofran) 4 mg IVP EDNOW ONE Stop: 04/06/16 11:43 Last Admin: 04/06/16 12:17 Dose: 4 mg Departure - Departure Disposition: [facility] Inpatient Acute Clinical Impression: Urinary tract infection Qualifiers: Urinary tract infection type: site unspecified Hematuria presence: with hematuria Qualified Code(s): N39.0 - Urinary tract infection, site not specified ; R31.9 - Hematuria, unspecified Condition: Fair
[2016-04-06] MEDS ORDERED: NS 1,000 ML IV ONE (12:13)
[2016-04-06 12:20] LABS: % IMMATURE GRANULYOCYTES 0.8 % (0.0-1.1); ABSOLUTE IMMATURE GRANULOCYTES 0.04 10^3/uL (0.00-0.10); ADD DIFF? NO; ADD MORPH? NO; ADD SCAN? NO; ATYPICAL LYMPHOCYTE FLAG 0 (0-99); FRAGMENT RBC FLAG 0 (0-99); HEMATOCRIT 32.4 % (38.0-47.0); HEMOGLOBIN 10.9 g/dL (12.6-16.3); LEFT SHIFT FLG 0 (0-99); LIPEMIA HEMOLYSIS FLAG 80 (0-99); MEAN CELL HEMOGLOBIN 28.9 pg (27.9-34.1); MEAN CELL HEMOGLOBIN CONCENTR. 33.6 g/dL (32.4-36.7); MEAN CELL VOLUME 85.9 fL (81.5-99.8); MEAN PLATELET VOLUME 9.7 fL (8.7-11.7); PLATELET CLUMPS FLAG 0 (0-99); PLATELET COUNT 94 10^3/uL (150-400); RED BLOOD CELL COUNT 3.77 10^6/uL (4.18-5.33); RED CELL DISTRIBUTION WIDTH 13.4 % (11.5-15.2)
[2016-04-06 12:22] LABS: COLOR YELLOW; LEUKOCYTE ESTERASE,URINE 3+ (NEGATIVE); NITRITE,URINE POSITIVE (NEGATIVE)
[2016-04-06 12:32] LABS: BACTERIA 2+ /hpf (NONE SEEN); RBC,URINE 50-182 /hpf (0-3); WBC,URINE 50-182 /hpf (0-3)
[2016-04-06 12:39] LABS: ANION GAP 11 mEq/L (8-16); CALCIUM 9.1 mg/dL (8.5-10.4); CARBON DIOXIDE 24 mEq/l (22-31); CHLORIDE 96 mEq/L (97-110); CREATININE 0.9 mg/dL (0.6-1.0); GLOMERULAR FILTRATION RATE > 60; GLUCOSE 109 mg/dL (70-100); SODIUM 131 mEq/L (134-144)
[2016-04-06] MEDS ORDERED: PROMETHAZINE HCL 25 MG/ML INJ IVP PRN (14:12)
[2016-04-06] MEDS ORDERED: ACETAMINOPHEN 325 MG TAB PO PRN (14:12)
[2016-04-06] MEDS ORDERED: ONDANSETRON DISINTEGRATING 4 MG TAB PO PRN (14:12)
--- NOTE | 2016-04-06 15:23 | GHP ---
[f rep st] HISTORY AND PHYSICAL DATE OF ADMISSION: 04/06/2016 CHIEF COMPLAINT: Pyelonephritis. 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 States she awoke this morning feeling very weak. Temperature at home was 100.6. She had crampy lower abdominal pain and subsequent nausea. No emesis or diarrhea. The patient has also had bladder cancer, status post left nephrectomy and bladder reconstruction was urostomy. She had issues with vaginal leakage, has had a right-sided nephrostomy tube placed on February 27, 2016. The patient also reports chills, denies fevers or sweats. She had her nephrostomy tube changed out 04/04/2016. Her last radiation was on Thursday. I personally reviewed micro history and has had Klebsiella and E coli pansensitive. Diagnosed with a UTI on 03/30/2016 and was started on Keflex with 2 days left of antibiotics. REVIEW OF SYSTEMS: I completed a 10-point review of systems negative except as in HPI. PAST MEDICAL HISTORY: 1. 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 2. Bladder cancer resected in 1987 with Bobo pouch. 3. Early stage breast cancer, 2005, resected, refused adjuvant radiation or hormonal therapy. 4. Vaginal pouch fistula. PAST SURGICAL HISTORY: 1. Bladder reconstruction and urostomy. 2. Bladder cancer resection in 1987 with pouch. 3. Left nephrectomy in 1988. 4. Left breast lumpectomy 2005. 5. Hernia surgery. FAMILY HISTORY: Father with CVA, mother healthy. SOCIAL HISTORY: Lives alone in [place]. Daughter is close by. Her brother and [id number] are caring for patient this week, contact is Chelsea Rausch . Quit tobacco in 1987, social alcohol. ALLERGIES: 1. Piperacillin, severe anaphylaxis. 2. Seasonal allergies. 3. Lactose intolerant. MEDICATIONS: 1. Vitamin C. 2. [place] thyroid 30 mg daily. 3. Senna. 4. Promethazine p.r.n. 5. OxyContin 10 twice daily. 6. Oxycodone 5 p.o. p.r.n. 7. MiraLAX. 8. Keflex. 9. Lidocaine cream. 10. Gas-X. 11. Dexamethasone 2 mg daily. 12. Lipitor 5 mg. CLINICAL EXAM: VITAL SIGNS: Temperature 37.4, blood pressure 154/86, heart rate 74 to 118, respirations 16, 97% on 2 L. GENERAL: Patient is tired- appearing, no acute distress. HEENT: PERRLA, EOMI, oropharynx clear, dry mucous membranes. CV: Regular rate and rhythm. No murmurs, gallops, or rubs. LUNGS: Clear to auscultation bilaterally. ABDOMEN: Soft. Mild, nontender, positive bowel sounds. : Urostomy without tenderness. She does have left suprapubic tenderness and right CVA tenderness. Right-sided nephrostomy tube in place. Dressed, clean, dry, and intact. MUSCULOSKELETAL: 5/5 upper and lower extremity strength. NEURO: 2 through 12 intact. PSYCH: Alert and oriented x3 next. LABS: WBC is 4.9, hemoglobin 10, hematocrit 32, platelets 94. Lactate 0.9, sodium 131, potassium 4.9, chloride 96, carbon dioxide 24, anion gap 12, BUN 17 creatinine 0.9, glucose 109, lipase is 21. Urine positive nitrite, +3 leuko esterase, 5182 RBCs, 50 to 182 WBCs, +2 bacteria. ASSESSMENT AND PLAN: 1. Pyelonephritis: Patient with recent klebsiella urinary tract infection diagnosed 03/30. She has almost completed a full course of Keflex. The patient now with fever, suprapubic pain and positive UA. Will treat with IV Levaquin (anaphylaxis to PCNs). Await urine and blood cultures. Her nephrostomy tube was changed out on the . 2. Stage IV vaginal cancer: primary Oncologist is Dr. Cintron, Urologist is Dr. Camacho who spoke with family today. Currently undergoing weekly XRT with cisplatin. 3. Hypovolemic hyponatremia: due to decreased p.o. intake. Will give gentle fluids. 4. Acute abdominal pain: suspected to be likely due to underlying infection. Nausea also do infection will provide p.r.n. antiemetics. 5. Normocytic anemia. Suspect this is secondary to chemotherapy. 6. Thrombocytopenia again suspect secondary to chemotherapy. 7. Pelvic pain secondary to XRT as well as urine due to a vaginal pouch fistula. Will continue her lidocaine cream. 8. Diet: Regular. 9. DVT prophylaxis: Lovenox. DISPOSITION: Patient warrants inpatient admission given acute pyelonephritis warranting IV antibiotics and IV fluids. Awaiting cultures. /[id number]/MODL MTDD
[2016-04-06] MEDS: NS 1,000 ML IV SCH (15:28)
[2016-04-06] MEDS: ONDANSETRON 4 MG/2 ML VIAL IVP PRN ×2 (15:54→20:24)
[2016-04-06] MEDS ORDERED: NON-FORMULARY NEW DRUG (Simethicone [Gas-X] 125 MG) PO PRN (16:21)
[2016-04-06] MEDS ORDERED: oxyCODONE IR 5 MG TAB PO PRN (16:21)
[2016-04-06] MEDS ORDERED: SENNOSIDES/DOCUSATE SODIUM TAB PO PRN (16:21)
[2016-04-06] MEDS ORDERED: PROCHLORPERAZINE MALEATE 10 MG TAB PO PRN (16:21)
[2016-04-06] MEDS ORDERED: LIDOCAINE TP PRN (16:21)
[2016-04-06] MEDS ORDERED: POLYETHYLENE GLYCOL 3350 17 GM PKT PO PRN (16:21)
[2016-04-06] MEDS ORDERED: SIMETHICONE 80 MG TAB CHEW PO PRN (16:45)
[2016-04-06] MEDS: ATORVASTATIN CALCIUM 10 MG TAB PO SCH (20:24)
[2016-04-07] MEDS: NS 1,000 ML IV SCH ×2 (01:19→19:32)
[2016-04-07] MEDS: THYROID 60 MG TAB PO SCH (05:19)
[2016-04-07 05:27] LABS: % IMMATURE GRANULYOCYTES 1.1 % (0.0-1.1); ABSOLUTE IMMATURE GRANULOCYTES 0.04 10^3/uL (0.00-0.10); ADD DIFF? NO; ADD MORPH? NO; ADD SCAN? NO; ATYPICAL LYMPHOCYTE FLAG 0 (0-99); FRAGMENT RBC FLAG 0 (0-99); HEMATOCRIT 26.7 % (38.0-47.0); HEMOGLOBIN 8.8 g/dL (12.6-16.3); LEFT SHIFT FLG 10 (0-99); LIPEMIA HEMOLYSIS FLAG 80 (0-99); MEAN CELL HEMOGLOBIN 29.4 pg (27.9-34.1); MEAN CELL VOLUME 89.3 fL (81.5-99.8); MEAN PLATELET VOLUME 9.3 fL (8.7-11.7); PLATELET CLUMPS FLAG 0 (0-99); PLATELET COUNT 50 10^3/uL (150-400); RED BLOOD CELL COUNT 2.99 10^6/uL (4.18-5.33); RED CELL DISTRIBUTION WIDTH 13.4 % (11.5-15.2)
[2016-04-07 05:56] LABS: ANION GAP 7 mEq/L (8-16); CALCIUM 8.2 mg/dL (8.5-10.4); CARBON DIOXIDE 23 mEq/l (22-31); CHLORIDE 100 mEq/L (97-110); CREATININE 0.9 mg/dL (0.6-1.0); GLOMERULAR FILTRATION RATE > 60; GLUCOSE 93 mg/dL (70-100); POTASSIUM 3.8 mEq/L (3.5-5.2); SODIUM 130 mEq/L (134-144)
--- NOTE | 2016-04-07 08:42 | HOSPPROG ---
Hospitalist Progress Note Assessment/Plan: Ms Nina presented to the emergency room with weakness, fever and abdominal pain. She woke feeling very weak. Her temperature at home was 100.6. She has a right-sided nephrostomy tube placed on 02/27/2016 today is my 1st encounter with the patient. Chart reviewed. #. Acute pyelonephritis * recently treated for UTI with a full course of Keflex * patient is immunocompromised. * She is being treated with IV Levaquin * nephrostomy tubes were changed on 04/04 #. stage IV vaginal cancer * patient getting weekly Cisplatin and XRT * will contact Dr. Cintron and let him know of the patient's admission (message left) * Dr. Camacho who is the patient's urologist spoke with the family yesterday #. hyponatremia * will check urine studies * she eats and drinks very little * cont iv fluids for one more liter #. anemia * lower than her baseline #. Thrombocytopenia * lower than her baseline * most likely secondary from chemo #. bladder cancer * history of a nephroureteral stent placement in February * patient has vaginal cancer that is eroding the pelvis creating a large urine to the vaginal fistula #. Poor intake * asked dietary to see patient * ensure ordered #.Pelvic pain * none today Subjective: Kati is feeling better today after getting IV abx and fluids. Objective: Vital Signs Temp Pulse Resp BP Pulse Ox 37 C 85 16 135/78 H 98 04/07/16 03:33 04/07/16 03:33 04/07/16 03:33 04/07/16 03:33 04/07/16 03:33 Laboratory Results 04/07/16 04:44 04/07/16 04:44 04/06/16 04/07/16 04/08/16 05:59 05:59 05:59 Intake Total 1700 Output Total 5 Balance -375 - Physical Exam Constitutional: no apparent distress, chronically ill appearing Eyes: PERRL Ears, Nose, Mouth, Throat: hearing normal Cardiovascular: regular rate and rhythym Respiratory: no respiratory distress Gastrointestinal: normoactive bowel sounds Genitourinary: no bladder tenderness, other (nephrostomy tube on right side draining yellow urine) Skin: warm, No normal color (pale) Musculoskeletal: generalized weakness Neurologic: AAOx3 Psychiatric: interacting appropriately ICD10 Worksheet Patient Problems: Problems Problem Status Onset Urinary tract infection Acute Pyelonephritis Acute
[2016-04-07] MEDS: DEXAMETHASONE 4 MG TAB PO SCH (09:42)
[2016-04-07] MEDS: ASCORBIC ACID 500 MG TAB PO SCH ×2 (09:43→10:15)
[2016-04-07] MEDS: ONDANSETRON 4 MG/2 ML VIAL IVP PRN ×2 (10:05→20:02)
--- NOTE | 2016-04-07 16:11 | GCON ---
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 RECOMMENDATIONS: 1. Agree with treating the patient's urinary tract infection with intravenous antibiotics as you ar e doing. 2. I would continue her radiation therapy starting tomorrow and also continue her cisplatin, which is being given weekly during radiation therapy on Thursday. 3. Location of treatment; whether she will need to be treated with cisplatin as an inpatient or as an outpatient will depend on how she does overall. 4. The patient does have anemia, not unexpected for pelvic radiation plus cisplatin. We will kiki rodoale to monitor her CBC while she is in the hospital and then continue to monitor her as an outpatien t also. ASSESSMENT: The patient is a 80-year-old white female who has had multiple cancers in the past, inc luding a remote history of a left renal carcinoma, unknown stage, history of breast cancer stage I d iagnosed in October of 2005. This was an invasive ductal carcinoma grade 2, HER-2 negative, ER, P R positive, and was located in the left breast lower central quadrant. She also had a history of bl adder cancer diagnosed in 1997. Her stage was unknown and most recently, she was diagnosed with a v aginal cancer in January of 2016. The staging was T4 N1 M1, with metastatic lesion to bone and rig ht lung. She is currently getting combined modality radiation plus weekly cisplatin as a primary tr eatment for this. She is now approximately 4 weeks into therapy. She presented with nausea and vomiting in addition to not feeling very well over the weekend. She p resented to the emergency room and was found to have urinary tract infection. The patient does have a nephrostomy tube in. She had been given oral antibiotics last week, but failed therapy. She was , therefore, admitted to the hospital for intravenous therapy and further treatment evaluation. The re is not current evidence of sepsis. Her blood pressure is okay. Her lactate was normal. Her blo od cultures are negative so far. The ID and sensitivity of her organism is pending, although it is a gram-negative [place], non lactose pss delivery professional. Because the patient is clinically stable, unless her situation deteriorates, I would resume her radi ation tomorrow and her chemotherapy is planned on Thursday of this week. I would also monitor her CBC closely. She did drop approximately 1 g overnight, but this is likely related to hydration and bedrest. She does not have any gross active bleeding at this time. I do n ot think she needs a transfusion, at least at this point. HISTORY OF PRESENT ILLNESS: Please see assessment. PAST MEDICAL HISTORY: In addition to her multiple previous cancers, includes hypothyroidism, hyperc holesterolemia, hernia repair, osteopenia, and history of asthma. PAST SURGICAL HISTORY: Cystectomy and hysterectomy in 1987 with a Kock pouch formation. She had a left nephrectomy in 1988. She had a left breast lumpectomy with sentinel node biopsy and had a harini ia repair around 2009. SOCIAL HISTORY: The patient is . She has been employed as an educator in the past, but is now retired. Her alcohol consumption prior to becoming ill was approximately 14 drinks per week. S he has local family members available for support. Her brother and [id number]-usr are in the room wi th her today. FAMILY HISTORY: Unremarkable for malignancy in first-degree relatives of which she is aware. REVIEW OF SYSTEMS: Remarkable for fatigue, nausea, which is now improving. Her 10-system review is otherwise unremarkable. PHYSICAL EXAMINATION: GENERAL: An alert, pale woman in no acute distress. HEENT: Pallor. LUNGS: Clear to auscultation anteriorly and posteriorly. CARDIAC: Regular rhythm. ABDOMEN: Normal bow el sounds and soft abdomen. LABORATORY DATA: Her urine culture, as previously mentioned, reveals a gram-negative [place], which is a non lactose pss delivery professional. Her blood cultures are pending. Her CBC shows a white count of 3.68, with a hemoglobin of 8.8, and a platelet count of 50,000. Her creatinine is normal at 0.9. Her sodium is 130. Her venous lactic acid was normal at 0.9. Thank you very much for allowing us to participate in her care. We look forward to assisting with h er management, both as an inpatient and as an outpatient. /[id number]/MODL
[2016-04-07] MEDS: ATORVASTATIN CALCIUM 10 MG TAB PO SCH (20:02)
[2016-04-07 23:19] VITALS: O2SAT 99
[2016-04-08] MEDS: THYROID 60 MG TAB PO SCH (04:44)
[2016-04-08 05:32] LABS: % IMMATURE GRANULYOCYTES 0.7 % (0.0-1.1); ABSOLUTE IMMATURE GRANULOCYTES 0.02 10^3/uL (0.00-0.10); ADD DIFF? NO; ADD MORPH? NO; ADD SCAN? NO; ATYPICAL LYMPHOCYTE FLAG 0 (0-99); FRAGMENT RBC FLAG 0 (0-99); HEMATOCRIT 28.1 % (38.0-47.0); HEMOGLOBIN 9.2 g/dL (12.6-16.3); LEFT SHIFT FLG 0 (0-99); LIPEMIA HEMOLYSIS FLAG 80 (0-99); MEAN CELL HEMOGLOBIN 29.3 pg (27.9-34.1); MEAN CELL HEMOGLOBIN CONCENTR. 32.7 g/dL (32.4-36.7); MEAN CELL VOLUME 89.5 fL (81.5-99.8); MEAN PLATELET VOLUME 10.6 fL (8.7-11.7); PLATELET CLUMPS FLAG 30 (0-99); RED BLOOD CELL COUNT 3.14 10^6/uL (4.18-5.33); RED CELL DISTRIBUTION WIDTH 13.1 % (11.5-15.2)
[2016-04-08 05:35] LABS: PLATELET COUNT 46 10^3/uL (150-400)
[2016-04-08 05:57] LABS: ALANINE AMINOTRANSFERASE 35 IU/L (9-52); ALBUMIN 2.7 g/dL (3.5-5.0); ALKALINE PHOSPHATASE 58 IU/L (38-126); ANION GAP 9 mEq/L (8-16); ASPARTATE AMINOTRANSFERASE 20 IU/L (14-46); BILIRUBIN,TOTAL 0.4 mg/dL (0.1-1.4); CALCIUM 8.9 mg/dL (8.5-10.4); CARBON DIOXIDE 21 mEq/l (22-31); CHLORIDE 102 mEq/L (97-110); CREATININE 0.8 mg/dL (0.6-1.0); GLOMERULAR FILTRATION RATE > 60; GLUCOSE 83 mg/dL (70-100); SODIUM 132 mEq/L (134-144); TOTAL PROTEIN 5.2 g/dL (6.3-8.2)
[2016-04-08 06:17] LABS: PLATELET ESTIMATE DECREASED (ADEQ)
[2016-04-08 08:09] VITALS: BP 154/80; PULSE 72; RESP 16; TEMP 98
--- NOTE | 2016-04-08 08:31 | HOSPPROG ---
Hospitalist Progress Note Assessment/Plan: Ms Nina presented to the emergency room with weakness, fever and abdominal pain. She woke feeling very weak. Her temperature at home was 100.6. She has a right-sided nephrostomy tube placed on 02/27/2016. #. Acute pyelonephritis/ suspect this is a UTI that didn't get good abx coverage * Pyelo likely unrelated to nephrostomy tube change * recently treated for UTI with a full course of Keflex * patient is immunocompromised. * She is being treated with IV Levaquin/urine cx is showing pseudomonas/ * nephrostomy tubes were changed on 04/04 * blood cx show no growth #. stage IV vaginal cancer * patient getting weekly Cisplatin and XRT * Dr. Camacho who is the patient's urologist spoke with the family yesterday #. hyponatremia * na better today with eating #. anemia * lower than her baseline #. Thrombocytopenia * lower than her baseline * most likely secondary from chemo #. bladder cancer * history of a nephroureteral stent placement in February * patient has vaginal cancer that is eroding the pelvis creating a large urine to the vaginal fistula #. Poor intake * eating better today #.Pelvic pain * none today #.Plan: dc today for radiation/ patient eating and drinking well. Subjective: Kati is feeling much better today/ no complaitns. Objective: Vital Signs Temp Pulse Resp BP Pulse Ox 36.6 C 72 16 154/80 H 99 04/08/16 08:00 04/08/16 08:00 04/08/16 08:00 04/08/16 08:00 04/08/16 08:00 Laboratory Results 04/08/16 04:56 04/08/16 04:56 04/07/16 04/08/16 04/09/16 05:59 05:59 05:59 Intake Total 1700 Output Total 3313 2334 Balance -375 -6528 - Physical Exam Constitutional: no apparent distress Eyes: PERRL Ears, Nose, Mouth, Throat: hearing normal Cardiovascular: regular rate and rhythym Respiratory: no respiratory distress Gastrointestinal: normoactive bowel sounds Genitourinary: other (nephrostomy tube w yellow urine) Skin: warm, No normal color (pale) Musculoskeletal: no muscle tenderness Neurologic: AAOx3 Psychiatric: interacting appropriately, not anxious ICD10 Worksheet Patient Problems: Problems Problem Status Onset Urinary tract infection Acute Pyelonephritis Acute
[2016-04-08] MEDS: ONDANSETRON 4 MG/2 ML VIAL IVP PRN (09:47)
[2016-04-08] MEDS: DEXAMETHASONE 4 MG TAB PO SCH (09:48)
[2016-04-08] MEDS: ASCORBIC ACID 500 MG TAB PO SCH (09:48)
--- NOTE | 2016-04-08 10:28 | SOAPPROG ---
SOAP Progress Note Assessment/Plan: Assessment: Pseudomonas UTI - sensitive to Levaquin. 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 She will need to f/u in the office for chemo as planned tomorrow Subjective: Feels much better. Taking nutrition by mouth. Objective: Vital Signs Temp Pulse Resp BP Pulse Ox 36.6 C 72 16 154/80 H 99 04/08/16 08:00 04/08/16 08:00 04/08/16 08:00 04/08/16 08:00 04/08/16 08:00 Laboratory Results 04/08/16 04:56 04/08/16 04:56 04/06/16 04/07/16 04/08/16 23:59 23:59 23:59 Intake Total 1600 100 Output Total 800 3865 007 Balance 823 -0599 -145 Physical Exam - Physical Exam General Appearance: alert, no apparent distress Respiratory: normal breath sounds Cardiac/Chest: regular rate, rhythm Abdomen: normal bowel sounds ICD10 Worksheet Patient Problems: Problems Problem Status Onset Urinary tract infection Acute Pyelonephritis Acute
--- NOTE | 2016-04-08 10:47 | PDIAF ---
- Diagnosis Diagnosis: pyelonephritis, cancer Code Status: Full Code - Medication Management Discharge Medications: Medications to Continue on Transfer Atorvastatin Calcium [Lipitor 10 mg (*)] 5 mg PO HS 11/13/15 [Last Taken ] Thyroid [[place] Thyroid 60 MG (*)] 30 mg PO DAILY AT 6AM 11/13/15 [Last Taken ] Ascorbic Acid [Vitamin C 500 mg (*)] 500 mg PO DAILY 04/03/16 [Last Taken ] CISplatin [PlatINOL] 0 mg IV WE 04/06/16 [Last Taken 04/02/16] Dexamethasone [Decadron 4 MG (*)] 2 mg PO DAILY 04/06/16 [Last Taken 04/05/16] Lidocaine [Lidocaine 4% cream] 1 flavia TP PRN PRN 04/06/16 [Last Taken 04/06/16] Methenamine Deepa [Hiprex 1 gm (*)] 0.5 gm PO BIDMEAL 04/06/16 [Last Taken ] Polyethylene Glycol 3350 [Miralax 17 gm (*)] 17 gm PO DAILY PRN 04/06/16 [Last Taken Unknown] Prochlorperazine Maleate [Compazine 10mg (*)] 10 mg PO Q6HRS PRN 04/06/16 [Last Taken 04/05/16] Sennosides/Docusate Sodium [Senokot-S] 1 each PO DAILY PRN 04/06/16 [Last Taken Unknown] Simethicone [GAS-X] 125 mg PO DAILY PRN 04/06/16 [Last Taken 04/04/16] oxyCODONE CR [Oxycontin] 10 mg PO BID 04/06/16 [Last Taken 04/05/16] oxyCODONE IR [Oxycodone Ir (*)] 5 mg PO Q4HRS PRN 04/06/16 [Last Taken 04/03/16] Acetaminophen [Tylenol 325mg (*)] 650 mg PO Q4HRS PRN #0 tab 04/08/16 [Last Taken Unknown] levOFLOXACIN [levAQUIN (*)] 750 mg PO DAILY #8 tab 04/08/16 [Last Taken Unknown] Discharge Medications: Refer to the Discharge Home Medication list for PRN reason. - Orders Services needed: Home Care, Physical Therapy, Occupational Therapy Home Care Face to Face: I certify that this patient was under my care and that I had the required [id number] encounter meeting the encounter requirements on the discharge day. My findings support the fact that the patient is homebound as defined in CMS Chapter 7 Medicare Benefits Manual 30.1.1, The condition of the patient is such that there exists a normal inability to leave home and consequently, leaving home would require a considerable and taxing effort. Diet Recommendation: no restrictions on diet Diet Texture: Regular Texture Diet - Follow Up Care Current Providers and Referrals: Teddy Camacho MD [Primary Care Provider] - As per Instructions Christen Cintron MD [Medical Doctor] -
--- NOTE | 2016-04-08 11:38 | GDS ---
[f rep st] DISCHARGE SUMMARY DISCHARGE DIAGNOSES: 1. Pyelonephritis. 2. Stage IV vaginal cancer. 3. Hyponatremia. 4. Anemia. 5. Thrombocytopenia. 6. Bladder cancer. 7. Poor oral intake. 8. Pelvic pain. CONSULTATIONS DURING STAY: Dr. Mike Chavarria with Hematology. 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 She presented with weakness, fever, abdominal pain. In the morning she started feeling very weak. At home her temperature was 100.6. She also has had bladder cancer status post left nephrectomy and bladder reconstruction with urostomy. She has had issues with vaginal leakage and had a right-sided nephrostomy tube placed on February 27, 2016. She was also recently treated for a urinary tract infection with a full course of Keflex. Urinalysis was performed here. This grew out Pseudomonas aeruginosa. She was treated with Levaquin. She is markedly improved today. HOSPITAL COURSE PER PROBLEM: 1. Acute pyelonephritis. Her symptoms have almost completely resolved with treatment of Levaquin. Her pyelonephritis was likely not related to the nephrostomy tube change but most likely urinary tract infection that did not get coverage. She is also immunocompromised. Blood culture showed no growth. She will further follow up with Dr. Camacho to see if she should be on suppressive therapy with antibiotics. 2. Stage IV vaginal cancer. She is getting weekly Cisplatin, XRT. 3. Hyponatremia. Her sodium level improved with more solute intake. 4. Anemia and thrombocytopenia. This is lower than her baseline, likely secondary to the chemotherapy. 5. Bladder cancer. She has a history of a nephroureteral stent placement February. 6. Poor intake. Today she is eating and drinking well. 7. Pelvic pain. None further. PENDING LABS AND TESTS: None. CONDITION AT DISCHARGE: Stable. Blood pressure is 154/80, heart rate is 72, respiratory rate is 16, O2 sats on 2 L are 99%, temperature of 36.6 Celsius. MEDICATIONS AT DISCHARGE: Please see the EMR. DISCHARGE INSTRUCTIONS: 1. To follow up with Dr. Camacho and make an appointment soon. 2. To stop taking her Keflex. 3. Take Levaquin for as prescribed. 4. If she has any fever or chills, to return to the emergency room. 5. Greater than 30 minutes discharging and coordinating care. /[id number]/MODL MTDD
== END 2016-04-08 11:40 | disposition home health service (06) | DRG 690 ==
LOC: OBSVTOIN 14:12 → F3E 14:41
PROVIDERS: ADMIT Internal Medicine; ATTEND Internal Medicine
DX: N10 Acute pyelonephritis (principal); E87.1 Hypo-osmolality and hyponatremia; C52 Malignant neoplasm of vagina; D64.81 Anemia due to antineoplastic chemotherapy; D69.59 Other secondary thrombocytopenia; E86.1 Hypovolemia; B96.5 Pseudomonas (aeruginosa) (mallei) (pseudomallei) as the cause of diseases classified elsewhere; Z85.51 Personal history of malignant neoplasm of bladder; Z85.3 Personal history of malignant neoplasm of breast; Z93.6 Other artificial openings of urinary tract status
CPT/HCPCS: 97162-GP; C1729; C1769; G8978-GP-CK; G8979-GP-CI; J1170; J1644; J1956; J2250; J2405; J3010; Q9967

== ENCOUNTER → 2016-04-11 | Day surgery (SDC) | payer OTHER ==
[~2016-04-11] MED LIST changes: -GADOBUTROL 10 ML VIAL IVP ONE; +IOPAMIDOL (ISOVUE-300) 100 ML BTL IV ONE
== END | disposition home or self-care (01) ==
LOC: FIMAGING 12:39
PROVIDERS: ATTEND Radiology Diagnostic Radiology
PROC: 0TW530Z Revision of Drainage Device in Kidney, Percutaneous Approach (ICD-10-PCS; principal; 2016-04-11)
DX: T83.092A Other mechanical complication of nephrostomy catheter, initial encounter (principal)
CPT/HCPCS: Q9967

== ENCOUNTER → 2016-05-27 | Day surgery (SDC) | payer OTHER | END | disposition home or self-care (01) | LOC: FIMAGING 09:46 | PROVIDERS: ATTEND Radiology Diagnostic Radiology | PROC: 0TW530Z Revision of Drainage Device in Kidney, Percutaneous Approach (ICD-10-PCS; principal; 2016-05-27) | DX: T83.092A Other mechanical complication of nephrostomy catheter, initial encounter (principal); N82.0 Vesicovaginal fistula; C52 Malignant neoplasm of vagina | CPT/HCPCS: 50387; C1729; C1769; J1644; Q9967 ==